=== PATIENT | female | born 1980 | race Caucasian/White ===

== ENCOUNTER 2021-03-24 08:59 | Outpatient (REF) | payer OTHER, SELFPAY ==
[2021-03-24 10:06] LABS: COVID-19 Test Negative (Negative); IDNOW Serial# 16C4AD1C
== END 2021-03-24 09:00 | disposition home or self-care (01) ==
LOC: HO.LAB 08:59
PROVIDERS: Visit Provider Internal Medicine
DX: Z20.822 Contact with and (suspected) exposure to COVID-19 (principal)
CPT/HCPCS: 36415; 87635; C9803

== ENCOUNTER 2024-04-10 23:24 | Emergency (ER) | payer OTHER, SELFPAY ==
--- NOTE | 2024-04-10 | ECG_ITS ---
Test Reason : CHEST PX Blood Pressure : */* mmHG Vent. Rate : 80 BPM Atrial Rate : 80 BPM P-R Int : 122 ms QRS Dur : 84 ms QT Int : 380 ms P-R-T Axes : 36 15 30 degrees QTcB Int : 438 ms Normal sinus rhythm Normal ECG No previous ECGs available Referred By: Generic ED Physician Electronically Signed By: AMOS ESPINOSA MD
[2024-04-10 23:35] VITALS: BP 138/88; PULSE 77; RESP 16; TEMP 36.7; O2SAT 100; BMI 34.7
[2024-04-10 23:52] LABS: Basophils Absolute Auto 0.1 X10*3/uL (0.0-0.2); Basophils Percent Auto 0.8 % (0-2); Eosinophils Absolute Auto 0.2 X10*3/uL (0.0-0.4); Eosinophils Percent Auto 2.9 % (0-4); Hematocrit 40.5 % (37.0-47.0); Hemoglobin 14.1 g/dl (12.0-16.0); Imm Gran Abs Auto 0.02 X10*3/uL (0.00-0.03); Imm Gran Pct Auto 0.3 % (0.0-0.4); Lymphocytes Absolute Auto 2.4 X10*3/uL (1.2-4.9); Lymphocytes Percent Auto 39.1 % (20-40); MANUAL DIFF FLAG NO; Mean Corpuscular HGB Conc 34.8 g/dl (31.0-35.0); Mean Corpuscular Hemoglobin 32.3 pg (27.0-33.0); Mean Corpuscular Volume 92.7 fL (80.0-98.0); Mean Platelet Volume 9.3 fL (9.4-12.3); Monocytes Absolute Auto 0.5 X10*3/uL (0.1-1.2); Monocytes Percent Auto 8.4 % (2-11); Neutrophils Percent Auto 48.5 % (45-73); Platelet Count 289 X10*3/uL (160-400); Red Blood Count 4.37 X10*6/uL (4.20-5.50); Red Cell Distribution Width 12.2 % (11.0-16.0); White Blood Count 6.2 X10*3/uL (4.8-10.8)
[2024-04-11 00:07] LABS: Alanine Aminotransferase 71 U/L (0-31); Albumin Level 4.2 g/dL (3.5-5.0); Alkaline Phosphatase 88 U/L (39-117); Anion Gap 9 (12-20); Aspartate Amino Transferase 51 U/L (5-31); Bilirubin Total 0.4 mg/dL (0.0-1.0); Blood Urea Nitrogen 9 mg/dL (9-16); Calcium 8.2 mg/dL (8.4-10.2); Carbon Dioxide 23 mmol/L (22-29); Chloride 111 mmol/L (96-108); Creatinine Clr Calc Pharmacy 84.1; Estimated Glomerular Filt Rate > 60; Glucose Random 106 mg/dL (60-115); Potassium 3.7 mmol/L (3.3-5.1); Sodium 139 mmol/L (135-145); Total Protein 7.4 g/dL (6.5-8.0)
[2024-04-11 00:13] LABS: Troponin-I High Sensitivity < 2.7 ng/L (<3.5-17.0)
[2024-04-11 04:34] VITALS: BP 145/93; PULSE 90; RESP 12; TEMP 36.8; O2SAT 100
--- NOTE | 2024-04-11 04:51 | PC.NURSE ---
Pt reports she wants to leave without seeing provider due to long wait, provider Eugene made aware and encourage Pt to stay, Pt refused. Encouraged Pt to come back if worsening symptoms.
== END 2024-04-11 04:57 | disposition left against medical advice (07) ==
PROVIDERS: Emergency Provider Emergency Medicine
DX: R07.89 Other chest pain (principal)
CPT/HCPCS: 36415; 80053; 84484; 85025; 93005; 99281; 99283

== ENCOUNTER → 2024-04-10 23:37 | Outpatient (BNV) | payer OTHER, SELFPAY | PROVIDERS: Emergency Provider Emergency Medicine; Visit Provider Internal Medicine Cardiovascular Disease | DX: R07.9 Chest pain, unspecified (principal) | CPT/HCPCS: 93010 ==